=== PATIENT | male | born 1935 | race Two or more races ===

== ENCOUNTER 2019-08-29 20:57 | Inpatient (IN) | payer BC, MEDICARE, OTHER ==
[~2019-08-29] VITALS: Ht 177.8 cm; Wt 80.8 kg
[2019-08-29] MEDS ORDERED: KETOROLAC 30MG/ML VIAL IV STA (22:39)
[2019-08-30 00:30] LABS: HEMATOCRIT. 37.3 % (42.0-52.0); HEMOGLOBIN. 12.6 g/dL (14.0-18.0); MEAN CORPUSCULAR HEMOGLOBIN 29.4 pg (28.0-32.0); MEAN CORPUSCULAR VOLUME 87.1 fL (80.0-94.0); PLATELET 183 x1000/uL (130-400); RED BLOOD CELL COUNT 4.29 mill/uL (4.7-6.1); RED CELL DISTRIBUTION WIDTH 14.1 % (11.6-14.6)
[2019-08-30 00:34] LABS: CHLORIDE 105 mEq/L (98-107)
[2019-08-30] MEDS ORDERED: SODIUM CHLORIDE 0.9% 1,000 ML IV ONE (04:17)
[2019-08-30 05:10] LABS: PLATELET ESTIMATE NORMAL
[2019-08-30] MEDS ORDERED: CEFTRIAXONE 1 G PREMIX 50 ML IV ONE (07:00)
[2019-08-30] MEDS ORDERED: DOPAMINE 400MG/250ML PREMIX 250 ML IV ONE ×2 (07:00→15:11)
[2019-08-30] MEDS ORDERED: LORAZEPAM 2MG/ML CPJ IV PRN (08:30)
[2019-08-30] MEDS ORDERED: NA PHOS,M-B/NA PHOS,DI-BA ENEMA 118ML PR PRN (08:30)
[2019-08-30] MEDS ORDERED: MAGNESIUM/ALUMINUM HYDROXIDE/SIMETHICONE 30ML UDC PO PRN (08:30)
[2019-08-30] MEDS ORDERED: ONDANSETRON HCL 4MG/2ML INJ IV PRN (08:30)
[2019-08-30] MEDS ORDERED: LEVOFLOXACIN 500MG PREMIX 100 ML IV SCH ×2 (08:30→12:00)
[2019-08-30] MEDS ORDERED: DOCUSATE SODIUM 100MG CAPSULE PO PRN (08:30)
[2019-08-30] MEDS ORDERED: GUAIFENESIN 200MG/10ML SUGAR FREE UDC PO PRN (08:30)
[2019-08-30] MEDS ORDERED: HYDROCODONE/ACETAMINOPHEN 5/325MG TABLET PO PRN (08:30)
[2019-08-30] MEDS ORDERED: IPRATROPIUM/ALBUTEROL 0.5-3(2.5)MG/3ML NEB NEB PRN (08:30)
[2019-08-30] MEDS: SODIUM CHLORIDE 0.9% 1,000 ML IV SCH (08:30)
[2019-08-30] MEDS ORDERED: CLONIDINE 0.1MG TABLET PO PRN (08:30)
[2019-08-30] MEDS ORDERED: DIPHENHYDRAMINE 50MG/ML VIAL IV PRN (08:30)
[2019-08-30] MEDS: ASPIRIN 81MG EC TABLET PO SCH (09:00)
[2019-08-30] MEDS: ENOXAPARIN 40MG/0.4ML SYR SUBCUT SCH (12:00)
[2019-08-30 16:20] LABS: CLARITY URINE CLOUDY (CLEAR); COLOR URINE DARK YELLOW (YELLOW); KETONES URINE TRACE (NEGATIVE); LEUKOCYTE ESTERASE URINE 3+ (NEGATIVE); NITRITE URINE NEGATIVE (NEGATIVE); OCCULT BLOOD URINE NEGATIVE (NEGATIVE); PROTEIN URINE 1+ (NEGATIVE); SPECIFIC GRAVITY URINE 1.018 (1.005-1.030)
[2019-08-30] MEDS ORDERED: DOPAMINE HCL 400 MG in DEXT 5% WATER 250 ML IV PRN (21:58)
[2019-08-31 04:06] LABS: BASOPHILS % 0.2 % (0.0-2.0); HEMATOCRIT. 43.1 % (42.0-52.0); HEMOGLOBIN. 14.8 g/dL (14.0-18.0); MEAN CORPUSCULAR HEMOGLOBIN 29.7 pg (28.0-32.0); MEAN CORPUSCULAR VOLUME 86.5 fL (80.0-94.0); MEAN PLATELET VOLUME 8.1 fl (7.4-10.4); MONOCYTES % 9.3 % (2.0-8.0); NEUTROPHILS % 79.5 % (40.0-76.0); PLATELET 187 x1000/uL (130-400); RED BLOOD CELL COUNT 4.99 mill/uL (4.7-6.1); RED CELL DISTRIBUTION WIDTH 13.7 % (11.6-14.6)
[2019-08-31 04:13] LABS: CHLORIDE 102 mEq/L (98-107)
[2019-08-31 04:20] LABS: LDL CHOLESTEROL 80 mg/dL (5-100)
[2019-08-31 04:22] LABS: HDL CHOLESTEROL 61 mg/dL (40-59); T4 FREE 0.88 ng/dL (0.76-1.46)
[2019-08-31] MEDS: SODIUM CHLORIDE 0.9% 1,000 ML IV SCH (07:23)
[2019-08-31] MEDS ORDERED: DOPAMINE 400MG/250ML PREMIX 250 ML IV ONE (07:30)
[2019-08-31] MEDS ORDERED: ONDANSETRON HCL 4MG/2ML INJ IV PRN (08:00)
[2019-08-31] MEDS ORDERED: LEVOFLOXACIN 250MG PREMIX 50 ML IV SCH (09:00)
[2019-08-31 09:06] LABS: CLARITY URINE CLEAR (CLEAR); COLOR URINE YELLOW (YELLOW); KETONES URINE NEGATIVE (NEGATIVE); LEUKOCYTE ESTERASE URINE 2+ (NEGATIVE); NITRITE URINE NEGATIVE (NEGATIVE); OCCULT BLOOD URINE 1+ (NEGATIVE); PROTEIN URINE NEGATIVE (NEGATIVE); SPECIFIC GRAVITY URINE 1.011 (1.005-1.030); UROBILINOGEN URINE 0.2 E.U./dL (0.2-1.0)
[2019-08-31] MEDS: ASPIRIN 81MG EC TABLET PO SCH (09:42)
[2019-08-31] MEDS: ENOXAPARIN 40MG/0.4ML SYR SUBCUT SCH (12:37)
[2019-08-31 22:49] VITALS: BP 134/82
[2019-09-01] VITALS (10 sets, daily range): BP systolic 99–131; BP diastolic 48–78
[2019-09-01] MEDS: SODIUM CHLORIDE 0.9% 1,000 ML IV SCH (02:09)
[2019-09-01] MEDS ORDERED: LEVOFLOXACIN 250MG PREMIX 50 ML IV SCH (08:00)
[2019-09-01] MEDS: ASPIRIN 81MG EC TABLET PO SCH (08:38)
[2019-09-01] MEDS ORDERED: SODIUM CHLORIDE 0.9% 1,000 ML IV SCH (12:00)
[2019-09-01] MEDS: ENOXAPARIN 40MG/0.4ML SYR SUBCUT SCH (12:40)
[2019-09-02] VITALS: BP 110/58
== END 2019-09-02 01:10 | disposition short-term general hospital (02) | DRG 871 ==
LOC: ER 20:57 → 5EST 08-30 06:59 → CANRESERV 08-30 16:09 → ENRESERV 08-30 16:09 → EDBEDREQSVC 08-31 14:54 → ENRESERV 08-31 19:38
PROVIDERS: ADMIT Internal Medicine; ATTEND Internal Medicine
PROC: 05HY33Z Insertion of Infusion Device into Upper Vein, Percutaneous Approach (ICD-10-PCS; principal; 2019-08-30)
PROC: B54NZZA Ultrasonography of Left Upper Extremity Veins, Guidance (ICD-10-PCS; 2019-08-30)
DX: A41.51 Sepsis due to Escherichia coli [E. coli] (principal); N17.0 Acute kidney failure with tubular necrosis; G92 Toxic encephalopathy; N39.0 Urinary tract infection, site not specified; E87.1 Hypo-osmolality and hyponatremia; E86.0 Dehydration; E78.5 Hyperlipidemia, unspecified; E78.00 Pure hypercholesterolemia, unspecified; Z51.5 Encounter for palliative care; N40.0 Benign prostatic hyperplasia without lower urinary tract symptoms; I12.9 Hypertensive chronic kidney disease with stage 1 through stage 4 chronic kidney disease, or unspecified chronic kidney disease; N18.9 Chronic kidney disease, unspecified; Z79.01 Long term (current) use of anticoagulants
CPT/HCPCS: 36415; 71045; 76937; 80053; 80061; 81003; 84439; 84443; 85025; 87077; 87186; 93306; 96374; 99291; C1725; J0696; J1265; J1650; J1885; J1956; J2060; J7030; J7060